=== PATIENT | female | born 1990 | race Caucasian/White ===

== ENCOUNTER 2018-04-12 14:34 | Day surgery (SDC) | payer BC ==
[~2018-04-12 14:34] MED LIST: LIDOCAINE 2% (SDV) 5 ML INJ
[2018-04-12 15:20] LABS: ADD MAN DIFF? NO
[2018-04-12 15:33] LABS: BASOPHILS % 0.3 % (0.0-2.0); EOSINOPHILS # 0.3 10^3/ul (0.0-0.5); EOSINOPHILS % 4.8 % (0.0-7.0); HEMATOCRIT 43.8 % (37.0-47.0); HEMOGLOBIN 14.5 g/dl (12.0-16.0); LYMPHOCYTES # 1.1 10^3/ul (0.8-2.9); MEAN CORPUSCULAR HEMOGLOBIN 30.3 pg (29.0-33.0); MEAN CORPUSCULAR HGB CONC 33.1 g/dl (32.0-37.0); MEAN CORPUSCULAR VOLUME 91.6 fl (82.0-101.0); MEAN PLATELET VOLUME 12.3 fl (7.4-10.4); MONOCYTE # 0.4 10^3/ul (0.3-0.9); MONOCYTES % 6.5 % (0.0-11.0); NEUTROPHIL # 4.1 10^3/ul (1.6-7.5); NEUTROPHILS % 69.2 % (39.0-77.0); PLATELET COUNT 199 10^3/UL (140-415); RED BLOOD COUNT 4.78 10^6/ul (4.20-5.40); RED CELL DISTRIBUTION WIDTH 12.1 % (11.5-14.5)
[2018-04-12 15:33] LABS: WHITE BLOOD COUNT 5.9 10^3/ul (4.8-10.8)
[2018-04-12] MEDS ORDERED: PROPOFOL 100 ML (17:42)
[2018-04-12] MEDS ORDERED: LABETALOL HCL 20MG INJ IV (18:00)
[2018-04-12] MEDS ORDERED: ONDANSETRON 4 MG INJ IV (18:00)
[2018-04-12] MEDS ORDERED: HYDROmorphONE 1 MG/5 ML IV SYRINGE IV ×3 (18:00)
[2018-04-12] MEDS ORDERED: DIPHENHYDRAMINE 50 MG INJ IV (18:00)
[2018-04-12] MEDS ORDERED: OXYCODONE/ACETAMINOPHEN (5/325) TAB PO ×2 (18:00)
[2018-04-12] MEDS ORDERED: KETOROLAC 30 MG INJ IV (18:00)
[2018-04-12] MEDS ORDERED: MEPERIDINE 25 MG INJ IV (18:00)
[2018-04-12] MEDS ORDERED: ALBUTEROL 0.083% (NEB) 2.5 MG/3 ML AMP HHN (18:00)
[2018-04-12] MEDS ORDERED: EPHEDrine SULFATE 50 MG/5 ML SYG IV (18:00)
[2018-04-12] MEDS ORDERED: hydrALAzine 20 MG INJ IV (18:00)
[2018-04-12] MEDS ORDERED: FENTAnyl 50 MCG/ML VIAL IV ×3 (18:00)
[2018-04-12] MEDS ORDERED: MIDAZOLAM 1 MG/ML 2 ML INJ IV (18:00)
[2018-04-12] MEDS ORDERED: ONDANSETRON 4 MG INJ (18:22)
[2018-04-12] MEDS ORDERED: DEXAMETHASONE 4 MG/ML 1 ML INJ (18:22)
[2018-04-12] MEDS: LIDOCAINE 1%/EPI 30 ML INJ (18:40)
[2018-04-12] MEDS: FERRIC SUBSULFATE 8 GM VIAL TOP (18:40)
[2018-04-12] MEDS ORDERED: CLINDAMYCIN 900 MG/D5W (PMX) 50 ML IVPB (18:43)
== END 2018-04-12 20:10 | disposition home or self-care (01) ==
LOC: SDS 14:34
DX: D06.9 Carcinoma in situ of cervix, unspecified (principal)
CPT/HCPCS: 57522; 84703; 85025; 86850; 86900; 86901; 88305